=== PATIENT | male | born 1965 | race Caucasian/White ===

== ENCOUNTER 2019-03-06 11:20 | Day surgery (SDC) | payer OTHER ==
[~2019-03-06] VITALS: Ht 180.3 cm; Wt 100.4 kg
[~2019-03-06 11:20] MED LIST: BUPIVACAINE/PF 0.5% ONE; EPINEPHRINE 1 MG/ML, 1ML ONE
[2019-03-06] MEDS ORDERED: LACTATED RINGERS 1,000 ML IV STA (11:49)
[2019-03-06 11:53] VITALS: BP 127/86
[2019-03-06] MEDS ORDERED: CALC200T3 PO (12:01)
[2019-03-06] MEDS ORDERED: IBUP200T64 PO (12:01)
[2019-03-06] MEDS ORDERED: OMEP20TA62 PO (12:01)
[2019-03-06] MEDS ORDERED: LACTATED RINGERS 1,000 ML IV ONE (13:00)
[2019-03-06] MEDS ORDERED: MIDAZOLAM 1 MG/ML, 2ML ONE (13:15)
[2019-03-06] MEDS ORDERED: FENTANYL PF 250 MCG/5ML ONE (13:15)
[2019-03-06] MEDS ORDERED: CEFAZOLIN 1,000 MG ONE (13:16)
[2019-03-06] MEDS ORDERED: ONDANSETRON 2MG/ML, 2ML ONE (13:16)
[2019-03-06] MEDS ORDERED: DEXAMETHASONE 4 MG/ML, 1ML ONE (13:23)
[2019-03-06] MEDS ORDERED: GLYCOPYRROLATE 0.2MG/1ML, 5ML ONE (13:58)
[2019-03-06] MEDS ORDERED: PROPOFOL 10 MG/ML, 20ML ONE (13:58)
[2019-03-06] MEDS ORDERED: SUCCINYLCHOLINE 20 MG/ML, 10ML ONE (13:58)
[2019-03-06] MEDS ORDERED: ROCURONIUM 10MG/ML,5ML ONE (13:58)
[2019-03-06] MEDS ORDERED: NEOSTIGMINE 1 MG/ML, 10ML ONE (13:58)
[2019-03-06] MEDS ORDERED: HALOPERIDOL 5 MG/ML IV PRN (14:00)
[2019-03-06] MEDS ORDERED: EPHEDRINE 50 MG/ML, 1ML IVPush PRN (14:00)
[2019-03-06] MEDS ORDERED: MIDAZOLAM 1 MG/ML, 2ML IV PRN (14:00)
[2019-03-06] MEDS ORDERED: ONDANSETRON 2MG/ML, 2ML IV PRN (14:00)
[2019-03-06] MEDS ORDERED: PROMETHAZINE 25 MG/ML, 1ML IV PRN (14:00)
[2019-03-06] MEDS ORDERED: ACETAMINOPHEN 325 MG TABLET PO PRN (14:00)
[2019-03-06] MEDS ORDERED: OXYcodone 5 MG/5 ML ORAL.SOL UDC PO PRN (14:00)
[2019-03-06] MEDS ORDERED: HYDROmorphone 2 MG/ML, 1ML IVPush PRN (14:00)
[2019-03-06] MEDS ORDERED: ALBUTEROL SULFATE 2.5 MG/3 ML NPPB PRN (14:00)
[2019-03-06] MEDS ORDERED: ONDANSETRON ODT 8 MG PO PRN (14:00)
[2019-03-06] MEDS ORDERED: DIAZEPAM 5 MG/ML, 2ML IVPush PRN (14:00)
[2019-03-06] MEDS ORDERED: hydrALAzine 20 MG/ML, 1ML IV PRN (14:00)
[2019-03-06] MEDS ORDERED: LABETALOL 5MG/ML, 20ML IV PRN (14:00)
[2019-03-06] MEDS ORDERED: PROMETHAZINE 12.5 MG SUPP PR PRN (14:00)
[2019-03-06] MEDS ORDERED: MEPERIDINE/PF 25MG/ML,1ML IVPush PRN (14:00)
[2019-03-06] MEDS ORDERED: OXYcodone 5 MG/5 ML ORAL.SOL UDC ONE (14:21)
[2019-03-06] MEDS ORDERED: FENTANYL PF 100 MCG/2ML ONE (14:21)
[2019-03-06] MEDS ORDERED: ACETAMINOPHEN 650 MG/20.3 ML UDC ONE (14:21)
[2019-03-06] MEDS: FENTANYL PF 100 MCG/2ML IV PRN ×2 (14:25→15:10)
[2019-03-06] MEDS ORDERED: KETOROLAC 30 MG/1 ML ONE (14:38)
[2019-03-06] MEDS ORDERED: KETOROLAC 30 MG/1 ML IVPush ONE (15:00)
== END 2019-03-06 17:10 | disposition home or self-care (01) ==
LOC: OUT 11:20
PROVIDERS: ATTEND Surgery
DX: K40.30 Unilateral inguinal hernia, with obstruction, without gangrene, not specified as recurrent (principal); D17.6 Benign lipomatous neoplasm of spermatic cord; L40.9 Psoriasis, unspecified; Z72.89 Other problems related to lifestyle; Z98.890 Other specified postprocedural states; Z83.3 Family history of diabetes mellitus; Z80.3 Family history of malignant neoplasm of breast
CPT/HCPCS: 49650; C1781; J0171; J0330; J0690; J1100; J1885; J2250; J2405; J2704; J2710; J3010; J7120; S2900